=== PATIENT | female | born 1965 | race Caucasian/White ===

== ENCOUNTER 2023-05-17 19:23 | Emergency (ER) | payer OTHER, SELFPAY ==
--- NOTE | ~2023-05-17 | XR_ITS ---
EXAMINATION: XR chest 2V DATE: 05/17/2023 19:46 INDICATION: Cough. Shortness of breath. TECHNIQUE: Frontal and lateral views of the chest were obtained. COMPARISON: None. FINDINGS: There is no pneumonia, pleural effusion, or pneumothorax. The heart size is normal. IMPRESSION: 1. No acute cardiopulmonary disease. Reviewed, dictated and finalized at location E. PMENT INSPECTOR
--- NOTE | ~2023-05-17 | CT_ITS ---
EXAMINATION: CTA chest PE protocol DATE: 05/17/2023 23:47 INDICATION: Dyspnea. TECHNIQUE: Computed tomography angiography (CTA) of the chest was performed with 100 mL Omnipaque-350 intravenous contrast timed to evaluate the pulmonary arteries. Coronal maximum intensity projection 3D-reconstructions were created by the technologist. Automated exposure control and iterative reconst ruction technique were employed. The dose-length product was 558.49 mGy-cm. COMPARISON: None. FINDINGS: There is mild emphysema. There is mild atelectasis bilaterally. No pleural effusion. The he art size is normal. No pericardial effusion. There are coronary artery calcifications. There is no pu lmonary embolus. Aortic atherosclerosis is noted. There is mild thoracic spondylosis. IMPRESSION: 1. No pulmonary embolus. 2. Mild emphysema. Reviewed, dictated and finalized at location E. SALES ARCHITECT
--- NOTE | 2023-05-17 19:27 | ECG_ITS ---
Measurements Intervals [place] Rate: 116 P: 57 HI: 112 QRS: 62 QRSD: 78 T: 64 QT: 318 QTc: 443 Interpretive Statements SINUS TACHYCARDIA WITH SHORT HI INTERVAL NO PREVIOUS ECG AVAILABLE FOR COMPARISON Electronically Signed On 05-18-2023 11:10:04 SALES ENGINEERING MANAGER by Balbina Lucas M.D.
[2023-05-17 19:28] VITALS: BP 155/86; PULSE 127; RESP 22; TEMP 36.2; O2SAT 98
[2023-05-17 19:45] LABS: Basophils Percent Auto 0.2 % (0.2-1.2); Eosinophils Percent Auto 0.2 % (0-4.4); Hematocrit 49.5 % (37.0-47.0); Hemoglobin 16.2 g/dL (12.0-15.0); Immature Granulocyte Absolute 0.07 K/mm3 (0.00-0.031); Immature Granulocyte Percent A 0.4 % (0-0.5); Lymphocytes Absolute Auto 5.76 K/mm3 (0.9-3.2); Lymphocytes Percent Auto 34.2 % (18.3-44.2); Mean Corpuscular HGB Conc 32.7 g/dl (32-36); Mean Corpuscular Hemoglobin 28.8 pg (26-34); Mean Corpuscular Volume 88.1 fl (80-100); Mean Platelet Volume 9.7 fl (7.4-10.4); Monocytes Absolute Auto 1.2 K/mm3 (0.1-0.6); Monocytes Percent Auto 6.9 % (2.6-8.5); Neutrophils Absolute Auto 9.8 K/mm3 (1.3-6.7); Neutrophils Percent Auto 58.1 % (45.5-73.1); Platelet Count Result 413 k/mm3 (150-375); Red Blood Count 5.62 M/mm3 (4.2-5.4); Red Cell Distribution Width 13.3 % (11.5-14.5); White Blood Count 16.9 K/mm3 (4.5-10.0)
[2023-05-17 19:57] LABS: Alanine Aminotransferase 67 U/L (6-35); Albumin Level 4.5 g/dL (3.5-5.1); Alkaline Phosphatase 123 U/L (38-126); Anion Gap 6 mmol/L (8-16); Aspartate Amino Transferase 46 U/L (14-36); Bilirubin,Total 0.8 mg/dL (0.2-1.3); Blood Urea Nitrogen 15 mg/dL (7-17); Calcium 9.7 mg/dL (8.4-10.2); Carbon Dioxide 32 mmol/L (22-30); Chloride 101 mmol/L (98-107); Estimated CRCL calculation 99 ml/min; Estimated Glomerular Filt Rate > 60; Glucose 118 mg/dL (65-110); Sodium 139 mmol/L (137-145)
[2023-05-17 21:59] VITALS: BP 135/85; PULSE 118; RESP 25; TEMP 36.6; O2SAT 95
[2023-05-17 22:00] VITALS: O2SAT 95
[2023-05-17] MEDS: IPRATROPIUM 0.5 MG/ALBUTEROL SULFATE 2.5 MG AMPUL.NEB 3 ML INHALATION (22:54)
[2023-05-17 22:56] VITALS: PULSE 106; RESP 25
[2023-05-17] MEDS: methylPREDNISolone SOD SUCC 125 MG VIAL IV PUSH (22:58)
[2023-05-17] MEDS: SODIUM CHLORIDE 0.9% IV 1,000 ML 999 ML IV CONT (22:58)
[2023-05-17 23:11] LABS: INR 0.9; Partial Thromboplastin Time 28.4 SECONDS (22.3-36.8); Prothrombin Time 12.2 Seconds (11.1-14.7)
[2023-05-17 23:15] LABS: Lactic Acid Reflex 2.9 mmol/L (0.7-2.0)
[2023-05-17 23:16] LABS: NT Pro B Type Natriuretic Pept 297 pg/mL (19.9-100); Troponin I 0.015 ng/mL (0.000-0.034)
[2023-05-17 23:22] LABS: Procalcitonin 0.1 ng/mL
[2023-05-17 23:42] LABS: Influenza A QL RT-PCR Negative (Negative); Influenza B QL RT-PCR Negative (Negative); RSV RNA, RT-PCR Positive (Negative); SARS-CoV-2 RNA PCR Negative (Negative)
[2023-05-18] VITALS: BP 142/91; PULSE 104; RESP 22; O2SAT 98
[2023-05-18 01:28] LABS: Bacteria Urine None Seen /hpf; Non Pathogenic Casts 0-2; Squamous Epithelial Cell Urine None seen /hpf (Few)
[2023-05-18 01:34] LABS: Appearance Urine Clear (Clear); Bilirubin Urine Negative (Negative); Color Urine Yellow (Yellow); Glucose Urine UA Negative (Negative); Ketones Urine Negative (Negative); Leukocyte Esterase Ur Negative LEU/UL (Negative); Nitrate Urine Negative (Negative); Protein Urine Negative (Negative); Specific Grav Ur 1.073 (1.001-1.035); Urobilinogen Urine 0.2 mg/dL (<2.0); pH Urine 5.5 (5.0-9.0)
[2023-05-18 01:35] LABS: Add Urine Microscopic? YES
--- NOTE | 2023-05-18 01:39 | ED.GENADULT ---
HPI - General Adult General Chief complaint: Shortness of Breath/Dyspnea Stated complaint: PNA and Dehydration Time Seen by Provider: 05/17/23 22:21 History of Present Illness HPI narrative: patient is a 57-year-old female who presents emergency department with chief complaint of shortness of breath patient also reports been having diarrhea patient states she was seen in urgent care and told that she had pneumonia was started on Keppra 10 mg of daily prednisone and also started on Augmentin. Patient states that she feels still short of breath and reports he has been wheezing at home. Patient also feels like though she is dehydrated Related Data Allergies Allergy/AdvReac Type Severity Reaction Status Date / Time No Known Allergies Allergy Verified 05/17/23 22:57 Review of Systems Review of Systems: A 10 system review of systems was completed on the patient and is negative except for what is stated in the HPI. Nursing and ancillary documentation was reviewed. Exam Narrative: GENERAL: Well-appearing, well-nourished, and in no acute distress. HEAD: Normocephalic, atraumatic. EYES: PERRLA and EOMI. ENT: Nares clear, no rhinorrhea or epistaxis. Mucous membranes moist. NECK: Supple. CHEST: scattered wheezes to auscultation. No respiratory distress. HEART: Regular rate and rhythm. No murmur heard. Normal peripheral pulses. ABDOMEN: Soft, nontender, nondistended, normal active bowel sounds. EXTREMITIES: Normal range of motion. No edema. SKIN: Warm, dry, no rash. NEURO: No focal deficits. Alert and oriented x3. PSYCH: Normal mood and affect. Course Vital Signs Vital signs: Vital Signs Temperature 36.2 C L 05/17/23 19:28 Pulse Rate 127 H 05/17/23 19:28 Respiratory Rate 22 H 05/17/23 19:28 Blood Pressure 155/86 H 05/17/23 19:28 Pulse Oximetry 98 05/17/23 19:28 Oxygen Delivery Room Air 05/17/23 19:28 Temperature 36.6 C 05/17/23 21:59 Pulse Rate 106 H 05/17/23 22:56 Respiratory Rate 25 H 05/17/23 22:56 Blood Pressure 135/85 05/17/23 21:59 Pulse Oximetry 95 05/17/23 22:00 Oxygen Delivery Room Air 05/17/23 22:00 Medical Decision Making MDM Narrative Medical decision making narrative: differential diagnosis includes pneumonia, COPD exacerbation, asthma exacerbation, bronchitis, viral syndrome laboratory studies were positive for A RSV infection, chest x-ray showed no focal infiltrate CTA chest showed no evidence of PE but did show evidence of emphysema. troponin was negative, BNP was 297. Procalcitonin 0.1. The patient was on a suboptimal dose of prednisone and will be increased to a larger pulse Vital Signs Vital Signs: Vital Signs Temperature 36.2 C L 05/17/23 19:28 Pulse Rate 127 H 05/17/23 19:28 Respiratory Rate 22 H 05/17/23 19:28 Blood Pressure 155/86 H 05/17/23 19:28 Pulse Oximetry 98 05/17/23 19:28 Oxygen Delivery Room Air 05/17/23 19:28 Temperature 36.6 C 05/17/23 21:59 Pulse Rate 106 H 05/17/23 22:56 Respiratory Rate 25 H 05/17/23 22:56 Blood Pressure 135/85 05/17/23 21:59 Pulse Oximetry 95 05/17/23 22:00 Oxygen Delivery Room Air 05/17/23 22:00 Lab Data 05/17/23 19:37 05/17/23 19:37 Labs: Lab Results 05/17/23 05/17/23 05/18/23 Range/Units 19:37 23:01 01:18 WBC 16.9 H (4.5-10.0) K/mm3 RBC 5.62 H (4.2-5.4) M/mm3 Hgb 16.2 H (12.0-15.0) g/dL Hct 49.5 H (37.0-47.0) % MCV 88.1 (80-100) fl MCH 28.8 (26-34) pg MCHC 32.7 (32-36) g/dl RDW 13.3 (11.5-14.5) % Plt Count 413 H (150-375) k/mm3 MPV 9.7 (7.4-10.4) fl Immature Gran % (Auto) 0.4 (0-0.5) % Neut % (Auto) 58.1 (45.5-73.1) % Lymph % (Auto) 34.2 (18.3-44.2) % [place] % (Auto) 6.9 (2.6-8.5) % Eos % (Auto) 0.2 (0-4.4) % Baso % (Auto) 0.2 (0.2-1.2) % Lymph # (Auto) 5.76 H (0.9-3.2) K/mm3 [place] # (Auto) 1.2 H (0.1-0.6) K/mm3 Eos #
[2023-05-18 01:56] VITALS: BP 137/82; PULSE 99; RESP 20; O2SAT 98
[2023-05-18 02:04] LABS: Reflex Lactic Acid Yes or No Add Lactic
== END 2023-05-18 01:58 | disposition home or self-care (01) ==
PROVIDERS: Emergency Provider Emergency Medicine
DX: J98.01 Acute bronchospasm (principal); Z20.822 Contact with and (suspected) exposure to COVID-19
CPT/HCPCS: 36415; 71046; 71275; 80053; 81001; 83605; 83880; 84145; 84484; 85025; 85610; 85730; 87086; 87637; 93005; 94640; 96361; 96374; 99284; J2930; J7030; Q9967

== ENCOUNTER 2025-03-19 17:00 | Emergency (ER) | payer OTHER, SELFPAY ==
--- OUTSIDE RECORDS SUMMARY | 2024-02-18 11:00 | XMS_ITS ---
Author Organization [facility] Address [address] [address] Care Team Providers Care Genetic Physician Name Role [facility] Unavailable [phone] REASON FOR VISIT Prescription Refill for Adderall, 20, QTY 30, for ADHD, taking 4, side effects No, prescribed by Dr. Diego Wu, Patient requesting service from promotional campaign [email or web address] Social History Tobacco Use: Social History Observation Description Date Details (start date - stop date) Current Smoker NA - NA Tobacco Control (Standard) Question Answer Notes Tobacco use: Current smoker Encounters Encounter Location Date Provider Diagnosis [facility] [address] [place] [address] 02/18/2024 [facility] Assessments Encounter Date Diagnosis (ICD Code) Assessment Notes Treatment Notes Treatment Clinical Notes Section Notes 02/18/2024 Other Follow the treatment plan as indicated by the provider. Take any medications as prescribed. If you have any questions about your prescription, ask the pharmacist. Call 911 anytime you think you may need emergency care. For example, call if:You have severe trouble breathing.You have a seizure.Call your doctor now or seek immediate medical care if:You have trouble breathing.You have a fever with a stiff neck or a severe headache.You have pain or pressure in your chest or belly.You have a fever or cough that returns after getting better.You feel very sleepy, dizzy, or confused.You are not urinating.You have severe muscle pain.You have severe weakness, or you are unsteady.You have medical conditions that are getting worse.Watch closely for changes in your health, and be sure to contact your doctor if:You do not get better as expected.You are having a problem with your medicine. You participated in a [employer] Rx request, considered an asynchronous visit where you provide your symptoms and medical history, and a treatment plan is formulated based on your submission. A treatment plan and patient education were provided based on your submission. If symptoms persist or worsen, you should seek in-person care or call 911 immediately for further evaluation. Plan Of Treatment Treatment Notes Assessment Notes Other Follow the treatment plan as indicated by the provider. Take any medications as prescribed. If you have any questions about your prescription, ask the pharmacist. Call 911 anytime you think you may need emergency care. For example, call if:You have severe trouble breathing.You have a seizure.Call your doctor now or seek immediate medical care if:You have trouble breathing.You have a fever with a stiff neck or a severe headache.You have pain or pressure in your chest or belly.You have a fever or cough that returns after getting better.You feel very sleepy, dizzy, or confused.You are not urinating.You have severe muscle pain.You have severe weakness, or you are unsteady.You have medical conditions that are getting worse.Watch closely for changes in your health, and be sure to contact your doctor if:You do not get better as expected.You are having a problem with your medicine. Next Appt Details Follow Up: PCP, Reason: Progress Notes * John BRADSHAWWaltB:1965 (59 yo F)Acc No.[id number]:02/18/2024 Patient: Cheryl URIOSTEGUI Provider: Peewee POSADA [facility] :1965 A ge:58 Y S ex:Female Date:02/18/2024 Phone: Address:[address] [place], [place] [id number] Subjective: * Chief Complaints: * 1 . Prescription Refill for Adderall, 20, QTY 30, for ADHD, taking 4, side effects No, prescribed by Dr. Diego Wu. 2. Patient requesting service from promotional campaign [email or web address]. * HPI: C omplaint History: Reason for visit: cancelled: CII rx request, Medication:AdderallDosage:20Quantity:30Reason:ADHDHow LonSide Effects:NoPrescriber:Dr. Diego Wu. * ROS: A ll Other Systems: Review of Systems (ROS) S ee HPI for details. * Medical History: * Social History: T obacco Use: T obacco Control (Standard) T obacco use: C urrent smoker D rugs/Alcohol: D o you drink alcohol?: No. Objective: * Vitals: Patient Reported Normal Blood Pressure Patient Reported Normal Temperature. * Physical Examination: A synchronous visit, unable to assess. Assessment: Plan: * Treatment: * Follow Up: P CP * Billing Information: * Visit Code: * Procedure Codes: * Electronic signature of SANCHEZ WRIGHT ALBINO [facility] on 03/19/2025 at 10:04 PM EST Sign off status: Pending * Provider: Peewee POSADA [facility] Date: 04/19/2023 Generated for Sarika shearer/Cher/Theron on: 05/20/2024 10:04 PM EST History and Physical Notes * Physical Examination Category Sub-Category Detail Notes Section Note s Asynchronous vi sit, unable to assess
[2025-03-19] VITALS (9 sets, daily range): BP systolic 128–152; BP diastolic 61–89; PULSE 99–108; RESP 17–30; TEMP 37.1; O2SAT 93–98
--- NOTE | ~2025-03-19 | XR_ITS ---
EXAMINATION: XR chest 1V portable DATE: 03/19/2025 17:29 INDICATION: Bronchitis. Cough and chest pain. TECHNIQUE: A single frontal view of the chest was obtained. COMPARISON: Chest x-ray of 05/17/2023 FINDINGS: Cardiomegaly. Lungs are clear of acute processes. IMPRESSION: 1. No acute findings. Mild cardiomegaly. Reviewed, dictated and finalized at location [facility]
--- NOTE | 2025-03-19 17:01 | ECG_ITS ---
Test Date: 2025-03-19 17:06:18 Measurements Intervals [place] Rate: 109 P: 71 FL: 161 QRS: 61 QRSD: 82 T: 66 QT: 340 QTc: 460 Interpretive Statements SINUS TACHYCARDIA POSSIBLE LEFT ATRIAL ENLARGEMENT ANTEROSEPTAL INFARCT, AGE INDETERMINATE BORDERLINE ST-T WAVE ABNORMALITY- LAT/HIGH LAT LEADS BASELINE ARTIFACT- I, III, AVR, AVL, V2 ABNORMAL ECG No previous ECG available for comparison Electronically Signed On 03-19-2025 19:55:46 HEAD MIXER by Fox Banks D.O.
[2025-03-19 17:31] LABS: Hematocrit 44.1 % (37.0-47.0); Hemoglobin 14.7 g/dL (12.0-15.0); Immature Granulocyte Percent A 0.2 % (0-0.5); Lymphocytes Absolute Auto 4.69 K/mm3 (0.9-3.2); Mean Corpuscular HGB Conc 33.3 g/dl (32-36); Mean Corpuscular Hemoglobin 30.1 pg (26-34); Mean Corpuscular Volume 90.4 fl (80-100); Nucleated Red Blood Cells Absolute Auto 0.000 K/mm3 (0.0-0.012); Nucleated Red Blood Cells Perc 0.0 % (0.0-0.2); Platelet Count Result 342 k/mm3 (150-375); Red Blood Count 4.88 M/mm3 (4.2-5.4); White Blood Count 13.8 K/mm3 (4.5-10.0)
[2025-03-19] MEDS: IPRATROPIUM BR 0.02% INH SOLN 0.5 MG/2.5 ML VIAL 1 MG INHALATION (18:42)
[2025-03-19] MEDS: ALBUTEROL SULFATE NEB 2.5 MG/3 ML INH 10 MG INHALATION (18:42)
[2025-03-19 18:45] LABS: Alanine Aminotransferase 29 U/L (6-35); Albumin Level 4.1 g/dL (3.5-5.1); Alkaline Phosphatase 109 U/L (38-126); Anion Gap 5 mmol/L (4-12); Aspartate Amino Transferase 24 U/L (14-36); Bilirubin,Total 0.7 mg/dL (0.2-1.3); Blood Urea Nitrogen 15 mg/dL (7-17); Calcium 8.9 mg/dL (8.4-10.2); Carbon Dioxide 28 mmol/L (22-30); Chloride 104 mmol/L (98-107); Estimated CRCL calculation 90 ml/min; Estimated Glomerular Filt Rate > 60; Glucose 108 mg/dL (65-110); Potassium 3.2 mmol/L (3.4-5.0); Sodium 137 mmol/L (137-145); Total Protein 7.6 g/dL (6.3-8.2)
--- NOTE | 2025-03-19 20:30 | ED_ITS ---
HPI - SOB/Dyspnea General Chief Complaint: Shortness of Breath/Dyspnea Stated Complaint: sob, chest congestion Time Seen by Provider: 03/19/25 17:13 History of Present Illness HPI Narrative: For last few days patient has had increasing chest tightness and shortness of breath with wheezing, she does smoke and has history of likely COPD, but she has been out of any medications for and has no primary care doctor. Related Data Allergies Allergy/AdvReac Type Severity Reaction Status Date / Time No Known Allergies Allergy Verified 03/19/25 17:20 Review of Systems 2 Review of Systems: All systems reviewed & are unremarkable except as noted in HPI and below Exam 2 Narrative: EXAMINATION OF ORGAN SYSTEMS/BODY AREAS: Constitutional: Vital signs per nursing GENERAL:No acute distress, non-toxic appearing. HEAD: Normal with no signs of head trauma. EYES: EOMI, conjunctiva normal ENT: Hearing grossly intact LUNGS: Extensive wheezing all lung de anda HEART: Slightly tachycardic ABD: Soft, nontender to palpation EXT: Normal range of motion, no lower extremity swelling SKIN: No rashes or lesions. NEURO: Alert. No gross focal sensory or strength deficits. PSYCH: Normal affect Course Vital Signs Vital signs: Vital Signs Temperature 98.8 F 03/19/25 17:12 Pulse Rate 104 H 03/19/25 17:12 Respiratory Rate 30 H 03/19/25 17:12 Blood Pressure 152/89 H 03/19/25 17:12 Pulse Oximetry 95 03/19/25 17:12 Oxygen Delivery Room Air 03/19/25 17:12 Temperature 98.8 F 03/19/25 19:38 Pulse Rate 108 H 03/19/25 19:38 Respiratory Rate 18 03/19/25 19:38 Blood Pressure 148/78 H 03/19/25 19:38 Pulse Oximetry 97 03/19/25 19:38 Oxygen Delivery Room Air 03/19/25 17:35 [facility] MDM Narrative Medical decision making narrative: ED COURSE AND MEDICAL DECISION MAKIN-year-old female with acute dyspnea and wheezing likely due to acute COPD exacerbation based on history and exam. Patient is hemodynamically stable. Nebulizer treatments are started and steroids given orally. Patient monitored in the ED for a couple of hours and on reevaluation is feeling significantly better. No respiratory distress or accessory muscle use. Good air movement bilateral lungs. EKG - 12-Lead: Performed at 1706. Interpreted by me. Sinus rhythm. Rate 109. Normal axis. IL-interval normal. QRS duration normal. QTc normal. No ST segment elevation or depression. T-wave normal. Impression: No EKG evidence of acute ischemia or dysrhythmia. Patient did have some transient hypoxia I suspect likely from the albuterol treatment, she has no chest pain or shortness of breath anymore, would far prefer to go home if possible. After some short observation here, oxygen back up to 92-93%. Advised smoking cessation Prescriptions for albuterol and steroid course provided. She is given strict return precautions and patient is discharged in stable/improved condition. Differential Diagnosis Differential Diagnosis: ACS, pneumonia, COPD exacerbation, PE Lab Data 03/19/25 17:25 03/19/25 18:26 Labs: Lab Results 03/19/25 03/19/25 Range/Units 17:25 18:26 WBC 13.8 H (4.5-10.0) K/mm3 RBC 4.88 (4.2-5.4) M/mm3 Hgb 14.7 (12.0-15.0) g/dL Hct 44.1 (37.0-47.0) % MCV 90.4 (80-100) fl MCH 30.1 (26-34) pg MCHC 33.3 (32-36) g/dl RDW 13.1 (11.5-14.5) % Plt Count 342 (150-375) k/mm3 MPV 9.7 (7.4-10.4) fl Immature Gran % (Auto) 0.2 (0-0.5) % Neut % (Auto) 58.1 (45.5-73.1) % Lymph % (Auto) 33.9 (18.3-44.2) % [place] % (Auto) 6.5 (2.6-8.5) % Eos % (Auto) 0.8 (0-4.4) % Baso % (Auto) 0.5 (0.2-1.2) % Lymph # (Auto) 4.69 H (0.9-3.2) K/mm3 [place] # (Auto) 0.9 H (0.1-0.6) K/mm3 Eos # (Auto) 0.1 (0-0.3) K/mm3 Baso # (Auto) 0.1 (0.0-0.1) K/mm3 Abs Immat Gran (auto) 0.03 (0.00-0.031) K/mm3 Absolute Neuts (auto) 8.0 H (1.3-6.7) K/mm3 Absolute Nucleated RBC 0.000 (0.0-0.012) K/mm3 Nucleated RBC % 0.0 (0.0-0.2) % Sodium 137 (137-145) mmol/L Potassium 3.2 L (3.4-5.0) mmol/L Chloride 104 (98-107) mmol/L Carbon Dioxide 28 (22-30) mmol/L Anion Gap 5 (4-12) mmol/L BUN 15 (7-17) mg/dL Creatinine 0.66 L (0.7-1.0) mg/dL Estim Creat Clear Calc 90 ml/min Estimated GFR > 60 (59 - ) Glucose 108 (65-110) mg/dL Calcium 8.9 (8.4-10.2) mg/dL Total Bilirubin 0.7 (0.2-1.3) mg/dL AST 24 (14-36) U/L ALT 29 (6-35) U/L Alkaline Phosphatase 109 (38-126) U/L Total Protein 7.6 (6.3-8.2) g/dL Albumin 4.1 (3.5-5.1) g/dL Imaging Data Radiologist's impression: ITS Impressions Chest X-Ray 03/19/25 17:33 IMPRESSION: 1. No acute findings. Mild cardiomegaly. Discharge Plan Discharge Clinical Impression: Acute exacerbation of chronic bronchitis Patient Disposition: Home Condition: Stable Instructions: Acute Bronchitis (ED) Additional Instructions: Please take the medications as prescribed, follow-up with a primary care doctor listed. If you change your mind about admission, or if you start having chest pain or shortness of breath, please come back to the ER, or call an ambulance to take you back here. Patient Language: Spanish Prescriptions: New prednisone 20 mg tablet 40 mg PO DAILY 4 Days Qty: 8 0RF albuterol sulfate 90 mcg/actuation HFA aerosol inhaler 2 puff inhalation QID PRN (Reason: shortness of breath or wheezing) Qty: 8.5 0RF ipratropium-albuterol 0.5 mg-3 mg(2.5 mg base)/3 mL solution for nebulization 3 ml inhalation Q6H PRN (Reason: shortness of breath or wheezing) Qty: 180 0RF atorvastatin [Lipitor] 40 mg tablet 40 mg PO DAILY Qty: 30 0RF No Action prednisone 20 mg tablet 40 mg PO DAILY 5 Days Qty: 10 0RF Follow-up/Referrals: Nasim Reyes MD [Physician, Family Practice] - 2 Days PHYSICIAN,GEOGRAPHIC INFORMATION SYSTEMS DIRECTOR [Primary Care Provider, Internal Medicine] Stand Alone Forms: Work/School Release IP
--- OUTSIDE RECORDS SUMMARY | 2025-03-19 21:05 | XMS_ITS | Clinical Summary ---
Author Organization [facility] Address [address] [place] [address] Care Team Providers Care Belting And Webbing Inspector Name Role Phone Kelli Avelar MD Primary Care Provider [phone] [facility],non-owned Affiliates and Associated Physician Practices is amultiple site organization consisting of ambulatory clinics and hospital sitesin [place], [place], [place] and [place]. This disclosure is being madepursuant to the Care Everywhere program and may not contain all information available regarding this patient. Last updated 17.[facility] Allergies No known active allergies Medications * Be aware that medications may not be up to date on this document. Alwaysverify current medications with the patient. 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 (Inactive) Take 2 tablets by mouth every evening Reasons: Obstructing Blood Clot due to Hip Surgery 60 tablet 2 7 Active docusate sodium (COLACE) 100 MG capsule Take 1 capsule by mouth 2 times daily 30 capsule 7 Active oxyCODONE-aceta minophen (PERCOCET) 7.5-325 MG tablet Take 1 tablet by mouth every 4 hours as needed for Pain 60 tablet 8 Active Additional Information Patient not taking.Reported on 05/26/2017 Active Problems Problem Noted Date Diagnosed Date Status post total hip replacement, left 05/26/19 18 Left hip pain 03/16/2017 Osteoarthritis of left hip 03/16/2017 Primary osteoarthritis of left hip 03/03/2017 Status post total hip replacement, right 017 Arthralgia of hip 01/13/2017 Diagnosis unknown 01/13/2017 Depression 01/13/2017 Tobacco use disorder 01/13/2017 S/P hip replacement 01/13/2017 On hormone replacement therapy 01/13/2017 Primary osteoarthritis of right hip 11/25/2016 Immunizations Immunization Administration Dates Next Due INFLUENZA VACCINE, QUADR. (F LUZONE; FLULAVAL; FLUARIX; AFLURIA QUADRIVALENT; 6MO+), 0.5 ML (IIV4) 01/15/2017 Social History Tobacco Use Types Packs/Day Years Used Date Smoking Tobacco: Every Day Cigarettes Smokeless Tobacco: Never Tobacco Cessation:Ready to Q uit: No; Counseling Given: Yes Alcohol Use Standard Drinks/Week Comments No 0 (1 standard drink = 0.6 oz pur e alcohol) Comments No Sex and Gender Information Value Date Recorded Sex Assigned at Not on file Legal Sex Female 9:53 AM CONCRETE BUCKET UNLOAD[employer] Gender Identity Not on file Sexual Orientation Not on file Last Filed Vital Signs Vital Sign Reading Time Taken Comments Blood Pressure 114/76 03/19/2017 12:59 PM CONCRETE [employer]ET UNLOADER Pulse 88 03/19/2017 12:59 PM [employer]CRETE BU[employer]ET UNLOADER Temperature 36.9 C (98.4 F) 03/19/2017 12:59 PM [employer]CRETE [employer]ET UNLOADER Respiratory Rate 18 03/19/2017 11:08 AM CONCRETE BUCKET UNLOADER Oxygen Saturation 94% 03/19/2017 12:59 PM CONCRETE BUCKET UNLOADER Inhaled Oxygen Concentration - - Weight 85.3 kg (188 lb) 05/26/2017 10:07 AM CONCRETE BUCKET UNLOADER Height 167.6 cm (5' 6) 05/26/2017 10:07 AM CONCRETE BUCKET UNLOADER Body Mass Index 30.34 05/26/2017 10:07 AM CONCRETE BUCKET UNLOADER Plan of Treatment Health Maintenance Due Date Last Done Comments COLOGUARD (AGES 45-75) - COLON CA SCREENING 1963 COLON MONITORING 1963 COLONOSCOPY - COLON CA SCREENING 1963 CT COLONOGRAPHY - COLON CA SCREENING 1963 Colorectal Cancer Screening 1963 FIT - COLON CA SCREENING 1963 FLEX SIG - COLON CA SCREENING 1963 LIPID TESTING 1963 MAMMOGRAM 1963 HIV SCREENING 09/12/1978 HEPATITIS C SCREENING 09/08/1981 DTAP/TDAP/TD VACCINES (1 - Tdap) 09/12/1982 PNEUMOCOCCAL VACCINE 50+ (1 of 2 - PCV) 09/12/1982 PAP SMEAR 09/12/1984 Cervical Cancer Screening 09/12/1993 PAP with HPV 09/12/1993 ZOSTER VACCINE (1 of 2) 09/12/2013 SCREENING FOR DIABETES 03/13/2020 7, 12/29/2016, 10/10/2014, Additional history exists DEPRESSION SCREENING 04/10/2024 COVID-19 VACCINE ( - season) 2024 INFLUENZA VACCINE (#1) 2024 01/15/2017 Respiratory Syncytial Virus (RSV) Vaccine Pt: or over 60 yrs (1 - 1-dose 75+ series) 09/12/2038 HEPATITIS B VACCINE Aged Out No longe r eligible based on patient's age to complete this topic HIB VACCINE Aged Out No longer eligi ble based on patient's age to complete this topic HPV VACCINE Aged Out No longer eligi ble based on patient's age to complete this topic MENINGOCOCCAL (Group B) VACCINE SHARED DECISION-MAKING Aged Out No longer eligible based on patient's age to complete this topic MENINGOCOCCAL GROUPS A/C/Y/W VACCINE Aged Out No longer eligible based on patient's age to complete this topic Medical Devices Implanted Type Area Talent Consultant Device Identifier Shelf Expiration Date Model / Serial / Lot Liner Actb R3 20d 52mm 36mm Xlpe Poly Implanted:Qty: 1 on 01/13/2017 by Estrada Liriano MD at [facility] Right: Hip [employer] 09/03/2026 [id number] / / [id number] Shell Actb 52mm Hip 3 Hl Poly R3 Std Implanted:Qty: 1 on 01/13/2017 by Estrada Liriano MD at [facility] Right: Hip [employer] 11/03/2026 [id number] / / [id number] Screw 6.5mm 25mm Sphr Hip Actb Reflc Implanted:Qty: 1 on 01/13/2017 by Estrada Liriano MD at [facility] Right: Hip [employer] 03/07/2026 [id number] / / [id number] Standard Offset Femoral Component Size 7 Implanted:Qty: 1 on 01/13/2017 by Estrada Liriano MD at [facility] Right: Hip [employer] 07/12/2026 [id number] / / [id number] Head Fem +0mm 12/14 36mm Hip Oxnm Implanted:Qty: 1 on 01/13/2017 by Estrada Liriano MD at [facility] Right: Hip [employer] 06/28/2026 [id number] / / [id number] Head Fem +0mm 12/14 36mm Hip Oxnm Implanted:Qty: 1 on 03/16/2017 by Estrada Liriano MD at [facility] Left: Hip [employer] 12/17/2026 [id number] / / [id number] Shell Actb 52mm Hip 3 Hl Poly R3 Std Implanted:Qty: 1 on 03/16/2017 by Estrada Liriano MD at [facility] Left: Hip [employer] 12/26/2026 [id number] / / [id number] Liner Actb R3 20d 52mm 36mm Xlpe Poly Implanted:Qty: 1 on 03/16/2017 by Estrada Liriano MD at [facility] Left: Hip [employer] 11/26/2026 [id number] / / [id number] Screw 6.5mm 35mm Sphr Dome Actb Canc Implanted:Qty: 1 on 03/16/2017 by Estrada Liriano MD at [facility] Left: Hip [employer] 08/31/2025 [id number] / / [id number] Femoral Component 7 Implanted:Qty: 1 on 03/16/2017 by Estrada Liriano MD at [facility] Left: Hip [employer] 09/18/2026 [id number] / / [id number] Procedures Procedure Name Priority Date/Time Associated Diagnosis Comments COMPREHENSIVE METABOLIC PANEL Routine 03/13/2017 11:18 AM CONCRETE BUCKET UNLOADER Pre-op testing from Last 3 Months or Most Recently Relevant to Health Maintenance Results * (ABNORMAL) COMPREHENSIVE METABOLIC PANEL (03/13/2017 11:18 AM CONCRETE BUCKET UNLOADER) Glucose 101(H) 65 - 99 mg/dL [facility] INSURANCE BILL Comment: Specimen received in contact with cells. No visible hemolysis present. However GLUC may be decreased and K increased. Clinical correlation indicated. BUN 14 6 - 24 mg/dL [facility] INSURANCE BILL Creatinine 0.58 0.57 - 1.00 mg/dL [facility] INSURANCE BILL eGFR by MDRD 106 >59 mL/min/1.7 3 [facility] INSURANCE BILL eGFR by MDRD 122 >59 mL/min/1.7 3 [facility] INSURANCE BILL BUN/Creatinine Ratio 24(H) 9 - 23 [facility]UR[facility] BILL Sodium 141 134 - 144 mmol/L [facility]UR[facility] BILL Potassium 4.3 3.5 - 5.2 mmol/L [facility]URANCE BILL Comment: Specimen received in contact with cells. No visible hemolysis present. However GLUC may be decreased and K increased. Clinical correlation indicated. Chloride 98 96 - 106 mmol/L [facility] INSURANCE BILL CO2 24 18 - 29 mmol/L [facility] BILL Calcium 9.7 8.7 - 10.2 mg/dL [facility]UR[facility] BILL Protein Total 7.8 6.0 - 8.5 g/dL [facility]UR[facility] BILL Albumin 4.7 3.5 - 5.5 g/dL [facility] BILL Globulin Total 3.1 1.5 - 4.5 g/dL [facility] INSUR[facility] BILL Albumin/Globulin Ratio 1.5 1.2 - 2.2 [facility] BILL Bilirubin Total 0.3 0.0 - 1.2 mg/dL [facility] INSURANCE BILL Alkaline Phosphatase 112 39 - 117 IU/L [facility]UR[facility] BILL AST 12 0 - 40 IU/L [facility] INSURANCE BILL ALT 13 0 - 32 IU/L [facility] INSURANCE BILL Comment:FASTING Blood BLOOD SPECIMEN / Unknown 03/13/2017 11:18 AM CONCRETE BUCKET UNLOADER 03/13/2017 Narrative Resulting Agency Comment [facility] [address] [facility] [phone] Estrada Liriano MD LAB - CHEMISTRY ORDERABLES Yarely l Result [facility] INSURANCE BILL [address] [place] [address] from Last 3 Months or Most Recently Relevant to Health Maintenance Insurance [facility] Advance Directives * Full Code (Latest Code Status on File) Date Activated Date Inactivated Comments 03/16/2017 3:35 PM 03/19/2017 3:09 PM * Full Code Date Activated Date Inactivated Comments 01/13/2017 4:56 PM 01/15/2017 3:23 PM Care Teams Belting And Webbing Inspector Relationship Specialty Start Date End Date Kelli Avelar MD [address] [place] [address] PCP - General Internal Medicine 12/29/16
--- OUTSIDE RECORDS SUMMARY | 2025-03-19 21:05 | XMS_ITS | Patient Health Record ---
Author Organization [facility] Address [address] [place] [address] Support Name Relationship Address Phone Cheryl Bailey Guarantor Unknown Unavailable Reason For Referral No Information Social History Tobacco Use: Social History Observation Description Date Details (start date - stop date) Current Smoker NA - NA Tobacco Control (Standard) Question Answer Notes Tobacco use: Current smoker Plan Of Treatment No Information Insurance Providers Payer Name Payer Address Payer Phone Subscriber Number Group Number Insured Name Patient Relationship to Insured Coverage Start Date Coverage End Date [facility] Self Pay [address] [place] [address] 0 Cheryl Bailey Self - patient is the insured
== END 2025-03-19 20:52 | disposition home or self-care (01) ==
PROVIDERS: Emergency Medicine; Emergency Provider Emergency Medicine
DX: J20.9 Acute bronchitis, unspecified (principal); J42 Unspecified chronic bronchitis
CPT/HCPCS: 36415; 71045; 80053; 85025; 93005; 94640; 96374; 99284; J2919